=== PATIENT | male | born 1985 | race Caucasian/White ===

== ENCOUNTER 2019-12-09 18:44 | Emergency (ER) | payer MEDICAID, OTHER ==
[~2019-12-09] VITALS: Ht 177.8 cm; Wt 100.0 kg
[~2019-12-09 18:44] MED LIST: GABA-341 PO; GEN0.3OS OP
[2019-12-09] MEDS ORDERED: morphine 4 MG/ML inj SYRINge IM ONE (19:15)
[2019-12-09] MEDS ORDERED: ondansetron 4mg rapidly disintigrating tab PO ONE (19:15)
--- NOTE | 2019-12-09 19:29 | NUR ---
[employer] AT BEDSIDE.
[2019-12-09] MEDS ORDERED: IBUP-1984 PO (19:52)
[2019-12-09] MEDS ORDERED: HYDR-4383 PO (19:52)
[2019-12-09] MEDS ORDERED: ONDA4TAB6 PO (19:52)
[2019-12-09 20:11] VITALS: BP 163/88
== END 2019-12-09 20:14 | disposition home or self-care (01) ==
LOC: ER 18:45
DX: S80.811A Abrasion, right lower leg, initial encounter (principal); M25.561 Pain in right knee; F12.90 Cannabis use, unspecified, uncomplicated; Z56.0 Unemployment, unspecified; Z88.6 Allergy status to analgesic agent; Z79.899 Other long term (current) drug therapy; W11.XXXA Fall on and from ladder, initial encounter; Y93.89 Activity, other specified; Y92.89 Other specified places as the place of occurrence of the external cause; Y99.8 Other external cause status
CPT/HCPCS: 29505; 73564; 96372; 99283; J2270

== ENCOUNTER 2021-06-09 05:08 | Emergency (ER) | payer MEDICAID, OTHER ==
[~2021-06-09] VITALS: Ht 177.8 cm; Wt 97.7 kg
[~2021-06-09 05:08] MED LIST changes: +HYDR-4383 PO; +ONDA4TAB6 PO
[2021-06-09 05:16] VITALS: BP 170/108
[2021-06-09] MEDS ORDERED: AMOX-101 PO (05:25)
== END 2021-06-09 05:34 | disposition home or self-care (01) ==
LOC: ER 05:08
DX: K04.7 Periapical abscess without sinus (principal); F12.90 Cannabis use, unspecified, uncomplicated; Z56.0 Unemployment, unspecified; Z88.8 Allergy status to other drugs, medicaments and biological substances; Z79.899 Other long term (current) drug therapy
CPT/HCPCS: 99283